=== PATIENT | female | born 1995 | race Caucasian/White ===

== ENCOUNTER 2021-03-29 11:42 | Emergency (ER) | payer OTHER, SELFPAY ==
[2021-03-29 11:51] VITALS: BP 150/94; PULSE 85; RESP 22; TEMP 37; O2SAT 97; BMI 25.0
--- NOTE | 2021-03-29 12:26 | ED.WOUNDLAC ---
HPI - Wound/Laceration <Robin Maxwell PA-C - Last Filed: 03/29/21 18:24> General Chief Complaint: Wound/Laceration Stated Complaint: needle through finger on left hand Time Seen by Provider: 03/29/21 12:10 Source: patient Mode of arrival: Ambulatory Limitations: no limitations History of Present Illness HPI narrative: Linda presents today with chief complaint of getting a needle stuck in her finger. She was using an industrial sewing machine and got her finger underneath the needle. She reports that her last tetanus was when she was a child. She notes pain but denies any significant swelling or bleeding. She has no other acute concerns or complaints at this time. Review of Systems <Robin Maxwell PA-C - Last Filed: 03/29/21 18:24> Review of Systems Narrative: As per HPI Patient History <Robin Maxwell PA-C - Last Filed: 03/29/21 18:24> Social History Smoking Status: Never smoker Smoking Status: Never smoker alcohol intake frequency: a few times a week Substance Use Type: does not use Exam <VIVIANA Arechiga Last Filed: 03/29/21 18:24> Narrative Exam Narrative: Exam Narrative: Const General: cooperative, healthy appearing, comfortable, no acute distress, well developed and well groomed Nutritional Appearance: average body habitus Orientation: alert and oriented x3 HENMT Head: normal to inspection and atraumatic Ears: hearing grossly normal bilaterally Nose: external nose normal and nares normal Face and sinus: normal facial exam Neck Neck: normal visual inspection and supple Resp Effort & Inspection: normal respiratory effort, able to speak in complete sentences, no audible wheezes, not labored, no nasal flaring and no respiratory distress Neuro General: alert, oriented x3, gait normal, tone normal and moves all extremities Cognition: normal cognition Speech: speech normal Gait: normal gait Extremities: Metallic foreign body noted distal tip left middle finger. Small amount a thread noted also. No bleeding, no surrounding erythema, slightly tender to the touch. Psych Appearance: grossly normal and well kempt Mental Status: mental status grossly normal Speech and Movement: speech and movement normal Mood: congruent mood Affect: normal affect Initial Vital Signs Initial Vital Signs: Vital Signs Temperature 98.6 F 03/29/21 11:51 Pulse Rate 85 03/29/21 11:51 Respiratory Rate 22 03/29/21 11:51 Blood Pressure 150/94 H 03/29/21 11:51 Pulse Oximetry 97 03/29/21 11:51 <Jaylen Fernández DO - Last Filed: 03/29/21 18:27> Initial Vital Signs Initial Vital Signs: Vital Signs Temperature 98.6 F 03/29/21 11:51 Pulse Rate 85 03/29/21 11:51 Respiratory Rate 22 03/29/21 11:51 Blood Pressure 150/94 H 03/29/21 11:51 Pulse Oximetry 97 03/29/21 11:51 Procedures <Robin Maxwell PA-C - Last Filed: 03/29/21 18:24> Foreign Body OTHER Foreign Body Removal Site: left and hand Description of foreign body: other (needle with string) Sedation/Analgesia: other (digital block) Technique: manual removal Confirmed by:: direct visualization Complications: none Post-procedure exam: awake, alert, normal BP, normal HR and normal O2 sat Neurovascular: normal capillary fill and other (decreased sensation secondary to nerve block) Course <Robin Maxwell PA-C - Last Filed: 03/29/21 18:24> Orders Ordered: Discontinued Medications Bupivacaine HCl (Bupivacaine 0.5% Mdv) 5 ml SUBCUT NOW ONE Stop: 03/29/21 12:30 Last Admin: 03/29/21 12:46 Dose: 5 ml Documented by: CTR.HANDER Diphtheria/Tetanus/Acell Pertussis (Tet,Diph,Pertuss(Acell),Vac/Pf 0.5 Ml Syringe) 0.5 ml IM .ONCE ONE Stop: 03/29/21 12:29 Last Admin: 03/29/21 12:40 Dose: 0.5 ml Documented by: CTRJOSE FRANCISCO Vital Signs Vital signs: Vital Signs - 8 hr 03/29/21 11:51 Temperature 98.6 F Pulse Rate 85 Respiratory Rate 22 Blood Pressure 150/94 H Pulse Oximetry 97 <DO Kiko Aguiar Last Filed: 03/29/21 18:27> Orders Ordered: Discontinued Medications Bupivacaine HCl (Bupivacaine 0.5% Mdv) 5 ml SUBCUT NOW ONE Stop: 03/29/21 12:30 Last Admin: 03/29/21 12:46 Dose: 5 ml Documented by: CTR.HANDER Diphtheria/Tetanus/Acell Pertussis (Tet,Diph,Pertuss(Acell),Vac/Pf 0.5 Ml Syringe) 0.5 ml IM .ONCE ONE Stop: 03/29/21 12:29 Last Admin: 03/29/21 12:40 Dose: 0.5 ml Documented by: CTRJOSE FRANCISCO Vital Signs Vital signs: Vital Signs - 8 hr 03/29/21 11:51 Temperature 98.6 F Pulse Rate 85 Respiratory Rate 22 Blood Pressure 150/94 H Pulse Oximetry 97 MDM - Wound/Laceration <Robin Maxwell PA-C - Last Filed: 03/29/21 18:24> MDM Narrative Medical decision making narrative: Patient is well appearing at this time. Foreign body was removed. Appears intact. No evidence of infection. ED return precautions discussed with the patient. Discharge Plan Departure Patient Disposition: Home Clinical Impression: Foreign body finger Instructions: DI for Puncture Wound, DI for Wound Infection Activity Restrictions/Additional Instructions: It was nice to meet you this afternoon. Please monitor for signs of infection which include increased redness, swelling, pain, fever. If you experience any significant symptoms please return for re-evaluation. Otherwise, follow up with PCP as needed. Thank you Robin Maxwell PAC <Jaylen Fernández DO - Last Filed: 03/29/21 18:27> Cosign ED Attending Cosignature Attestation: Dr Fernández Co-Sign Statement: I was available for consultation during this patient's emergency department visit. This chart is signed by myself for administrative purposes only. I did not have direct contact with this patient during this visit. They were seen independently by the APC.
[2021-03-29] MEDS: TET,DIPH,PERTUSS(ACELL),VAC/PF 0.5 ML SYRINGE IM (12:40)
[2021-03-29] MEDS: BUPIVACAINE 0.5% MDV 5 ML SUBCUT (12:46)
== END 2021-03-29 13:29 | disposition home or self-care (01) ==
PROVIDERS: Emergency Provider Physician Assistant
DX: S61.243A Puncture wound with foreign body of left middle finger without damage to nail, initial encounter (principal); W26.8XXA Contact with other sharp object(s), not elsewhere classified, initial encounter; W45.8XXA Other foreign body or object entering through skin, initial encounter; Y99.0 Civilian activity done for income or pay; Z23 Encounter for immunization
CPT/HCPCS: 10120; 64450; 90471; 99283; 90715

== ENCOUNTER → 2023-09-29 16:48 | Outpatient (CLI) | payer OTHER, SELFPAY | PROVIDERS: Visit Provider Physician Assistant | DX: R30.0 Dysuria (principal) | CPT/HCPCS: 87077; 87086; 87186 ==

== ENCOUNTER 2024-09-23 14:08 | Day surgery (SDC) | payer OTHER, SELFPAY ==
[2024-09-20 13:28] VITALS: BMI 25.5
--- NOTE | 2024-09-23 | PATH_ITS ---
[facility] Accession Number: [id number] No. of containers..01 Tissue . 01 Material submitted: . fallopian tube - BILATERAL FALLOPIAN TUBES . 01 Diagnosis: BILATERAL FALLOPIAN TUBES, BILATERAL SALPINGECTOMIES: Benign fallopian tubes without significant abnormalities. Negative for atypia or malignancy. MRV 09/27/2024 1405 Local . 01 Electronically signed: . Corby Rubio MD, Pathologist NPI- [id number] . 01 Gross description: . Received in formalin with two patient identifiers and bilateral fallopian tubes, are two unoriented, fimbriated fallopian tubes, 6.5 x 1.0 cm and 7.0 x 0.6 cm. Both tubes have violaceous, smooth serosa with no cysts identified. The lumens are stellate and unremarkable. 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 A1: Longer fallopian tube. A2: Brady fallopian tube. ([id number]) /MRV 09/24/2024 1902 Local . 01 Pathologist provided ICD-10: Z30.2 . 01 CPT . 037363 Specimen Comment: A courtesy copy of this report has been sent to [phone] Performed at: [address] [facility] [address], [place], [place] [id number] MD Ajay Neal MD Phone: [phone]
--- NOTE | 2024-09-23 09:03 | PM.PREOP ---
Pre-operative Note COVID-19 COVID-19 status: Not tested Interval Note History & Physical reviewed/Exam performed by Physician: Yes Changes to H&P: No
[2024-09-23 14:33] VITALS: BP 121/83; PULSE 88; RESP 14; TEMP 36.2; O2SAT 100; BMI 25.5
[2024-09-23] MEDS: LACTATED RINGERS 1,000 ML 42 ML IV (14:43)
[2024-09-23] MEDS: SCOPOLAMINE 1 PATCH TOP (14:53)
[2024-09-23] MEDS: FAMOTIDINE 20 MG/2 ML VIAL IV (14:55)
[2024-09-23] MEDS: ACETAMINOPHEN 325 MG TABLET 975 MG PO (14:58)
--- NOTE | 2024-09-23 16:10 | SUR.OPER ---
Lithotomy on padded OR bed, head on pillow, arms tucked with gel pads. Legs secured in padded yellow fins stirrups.
[2024-09-23] MEDS: BUPIVACAINE 0.5% W/ EPI (PF) 30 ML VIAL INJ (16:26)
[2024-09-23 16:46] VITALS: BP 105/68; PULSE 80; RESP 12; TEMP 36.3; O2SAT 96
[2024-09-23 16:51] VITALS: BP 103/67; PULSE 77; RESP 16; TEMP 36.3; O2SAT 96
--- NOTE | 2024-09-23 16:51 | P.OP_ITS ---
Operative Date/Time/Diagnoses Date of procedure: 09/23/24 Time of procedure: 16:10 Pre-op diagnosis: Request for sterilization Post-op diagnosis: other (PAT, broad ligament varicosities, right, subserosal fibroids) Procedure & Clinicians Procedure: Procedures Operation Date: 09/23/24 15:45 Actual Procedure Side Surgeon p Laparoscopic Salpingectomy Bilateral Benoit Garcia MD Indications: Linda is a 29-year-old nulligravida, LMP 08/20/2024 who presents today to discuss elective sterilization. She and her partner absolutely certain that they do not wish to have children at any point in the future and would like to take steps to permanently and irreversibly prevent that from happening. Patient understands that there options for contraception but she has visceral reaction to the idea of an IUD and even has difficulty tolerating Pap smears. She has accordingly requested that she would also like to have a Pap smear performed at the time of sterilization. Patient counseled regarding alternatives, risks, benefits, and potential complications associated with laparoscopic bilateral nany pingectomy for sterilization. She understands that this is a procedure which will result in her permanently and irreversibly being unable to bear children in the future without benefit of assisted reproductive technology. She further understands that there is a potential risk for failure (1-09/999) and should failure occur, ectopic gestation is likely. With full understanding of the above, she requests to proceed with elective sterilization and she presents today for her scheduled surgery. Surgeon: Benoit Garcia Anesthesia Type: General Operative Notes Findings: The uterus is normal in size and shape with the exception that there are 2 small subserosal myomas measuring approximately 1.0 and 1.5 cm in maximum diameter. In the right parametria, there is significant dilation of the veins within the broad ligament consistent with pelvic congestion syndrome. Both ovaries appear completely normal in all respects. Both fallopian tubes also appeared completely normal. There were no abnormalities noted within the anterior cul-de-sac or the posterior cul-de-sac. The remainder of the abdomen and pelvis are normal to laparoscopic evaluation. Closure Type: primary Specimen(s): left tube and right tube Estimated blood loss (mL): 5 Blood products transfused: none Procedure in detail: With the patient under satisfactory general anesthesia in the modified dorsal lithotomy position, the perineum, vagina, and abdomen were prepped and draped for IUD removal and laparoscopic bilateral salpingectomy. A pre-surgical safety time-out was then taken in accordance with [facility] Main OR protocols. The umbilicus was then infiltrated with 0.5% Marcaine with epinephrine and 1 cm vertical incision was made in the inferior aspect of the umbilicus. Veress needle was used to insufflate the abdomen with carbon dioxide and once appropriately insufflated, 5 mm bladeless trocar and sleeve were inserted through the incision. Proper placement of the sleeve was confirmed with laparoscopic visualization and insufflation of the abdomen continued. A 2nd and 3rd 5 mm laparoscopic port were placed in the right and left mid quadrants using a similar technique and using a 3 puncture technique, the abdomen and pelvis were visualized with the findings as noted above. The distal aspect of the left fallopian tube was then grasped with a grasping forceps and using a Power Seal device, fimbria ovarica was coagulated and divided the dissection using the Power Seal continuing across the mesosalpinx to the cornua where the base fallopian tube was coagulated and divided. The left fallopian tube was then removed through one of the ports and submitted pathologic specimen. Attention was then turned to the right adnexa with distal tube grasped with a grasping forcep. The Power Seal device was then used to coagulate fimbria ovarica and the dissection was carried across the mesosalpinx to the cornua where the fallopian tube on the right side was amputated at the cornua following coagulation proximal tube the Power Seal device. Pelvis was inspected and there were no abnormalities noted following bilateral salpingectomy. The pneumoperitoneum was then vented and the ports removed from the abdominal wall. Port incisions were then closed with 4-0 Monocryl using inverted interrupted stitches and skin glue was applied. Appropriate dressings were then applied, patient was awakened, and transferred to the PACU for a period of observation after having tolerated the procedure well. Complications: none Post-operative Condition: stable Disposition: PACU Plan for aftercare: Routine PACU care with follow-up plans for 2 weeks after surgery.
[2024-09-23 16:58] VITALS: BP 105/72; PULSE 76; RESP 18; TEMP 36.4; O2SAT 97
[2024-09-23 17:03] VITALS: BP 106/74; PULSE 79; RESP 19; TEMP 36.3; O2SAT 97
== END 2024-09-23 17:34 | disposition home or self-care (01) ==
PROVIDERS: PCP Family Medicine; Referring Provider Obstetrics & Gynecology; Visit Provider Obstetrics & Gynecology
PROC: 0UT74ZZ Resection of Bilateral Fallopian Tubes, Percutaneous Endoscopic Approach (ICD-10-PCS; CPT 58661; principal; 2024-09-23 15:45)
DX: Z30.2 Encounter for sterilization (principal); D25.2 Subserosal leiomyoma of uterus; I86.8 Varicose veins of other specified sites
CPT/HCPCS: 58661; J1100; J1885; J2250; J2405; J2704; J3010